=== PATIENT | female | born 1960 | race Caucasian/White ===

== ENCOUNTER 2021-04-24 01:39 | Emergency (ER) | payer SELFPAY ==
[2021-04-24 01:55] VITALS: BMI 16.9
[2021-04-24] MEDS ORDERED: ACETAMINOPHEN 500 MG TABLET (FP) PO ONE (03:18)
[2021-04-24] MEDS ORDERED: ACETAMINOPHEN 325 MG TABLET (FP) ONE (03:20)
[2021-04-24] MEDS ORDERED: LACTATED RINGERS SOLUTION 1000 ML INFUS.BAG IV ONE (03:58)
[2021-04-24] MEDS ORDERED: DEXAMETHASONE SOD PHOSPHATE 10 MG/1 ML VIAL IVPUSH ONE (04:09)
[2021-04-24] MEDS ORDERED: DEXAMETHASONE SOD PHOSPHATE 10 MG/1 ML VIAL ONE (04:12)
[2021-04-24 05:45] VITALS: BP 112/66; PULSE 90; TEMP 98
== END 2021-04-24 05:45 | disposition home or self-care (01) ==
LOC: JER 01:39
PROC: 3E033GC Introduction of Other Therapeutic Substance into Peripheral Vein, Percutaneous Approach (ICD-10-PCS; principal; 2021-04-24)
DX: R05.9 Cough, unspecified (principal)
CPT/HCPCS: 71045-TC-FY; 87804; 93005; 93010; 99285-25; C9803; J1100; U0003; U0005